=== PATIENT | female | born 2000 | race African-American/Black ===

== ENCOUNTER 2021-08-15 18:19 | Emergency (ER) | payer OTHER ==
[~2021-08-15] VITALS: Ht 167.6 cm; Wt 54.4 kg
[2021-08-15 20:21] LABS: URINE BILIRUBIN NEGATIVE (Negative); URINE BLOOD NEGATIVE (Negative); URINE CLARITY CLEAR; URINE COLOR YELLOW; URINE GLUCOSE-RANDOM NEGATIVE (Negative); URINE KETONES NEGATIVE (Negative); URINE LEUKOCYTES-REFLEX NEGATIVE (Negative); URINE NITRITE-REFLEX NEGATIVE (Negative); URINE PROTEIN NEGATIVE (Negative)
[2021-08-15] MEDS ORDERED: FLAGYL500 M1 PO (23:36)
[2021-08-15 23:54] VITALS: BP 112/58
== END 2021-08-15 23:54 | disposition home or self-care (01) ==
LOC: M.ERS 18:19
PROVIDERS: Nurse Practitioner Psychiatric/Mental Health
DX: N76.0 Acute vaginitis (principal)

== ENCOUNTER 2021-09-15 16:03 | Emergency (ER) | payer OTHER ==
[~2021-09-15] VITALS: Ht 170.2 cm; Wt 57.6 kg
[~2021-09-15 16:03] MED LIST: FLAGYL500 M1 PO
[2021-09-15 16:24] LABS: URINE BILIRUBIN NEGATIVE (Negative); URINE BLOOD 3+ (Negative); URINE CLARITY CLOUDY; URINE COLOR YELLOW; URINE GLUCOSE-RANDOM NEGATIVE (Negative); URINE KETONES NEGATIVE (Negative); URINE PROTEIN 2+ (Negative); URINE SPECIFIC GRAVITY 1.015 (1.005-1.030); URINE UROBILINOGEN 0.2 E.U./dl (0.2-1.0)
[2021-09-15 16:26] LABS: URINE LEUKOCYTES-REFLEX 3+ (Negative); URINE NITRITE-REFLEX POSITIVE (Negative)
[2021-09-15 16:30] LABS: MUCUS None Seen strn/LPF (None Seen); SQUAMOUS 4-10 Moderate /LPF (0-3)
[2021-09-15 16:31] LABS: BACTERIA-REFLEX 1-9 Few /HPF (None Seen); CASTS None Seen /LPF (None Seen); CRYSTALS None Seen /LPF (None Seen); URINE WBC-REFLEX >25 Many /HPF (0-5)
[2021-09-15] MEDS ORDERED: CIPRO500 M1 PO (16:37)
[2021-09-15] MEDS ORDERED: PHENAZOPYRIDIN200 M2 PO (16:37)
[2021-09-15 16:51] VITALS: BP 132/83
== END 2021-09-15 16:55 | disposition home or self-care (01) ==
LOC: M.ERS 16:03
PROVIDERS: Family Medicine
DX: N39.0 Urinary tract infection, site not specified (principal)

== ENCOUNTER 2021-11-19 16:05 | Emergency (ER) | payer OTHER ==
[~2021-11-19] VITALS: Ht 167.6 cm; Wt 58.5 kg
[~2021-11-19 16:05] MED LIST changes: +CIPRO500 M1 PO; +PHENAZOPYRIDIN200 M2 PO
[2021-11-19 17:22] LABS: URINE BILIRUBIN NEGATIVE (Negative); URINE BLOOD NEGATIVE (Negative); URINE CLARITY CLEAR; URINE COLOR YELLOW; URINE GLUCOSE-RANDOM NEGATIVE (Negative); URINE KETONES NEGATIVE (Negative); URINE LEUKOCYTES NEGATIVE (Negative); URINE NITRITE NEGATIVE (Negative); URINE PROTEIN NEGATIVE (Negative); URINE SPECIFIC GRAVITY 1.025 (1.005-1.030); URINE UROBILINOGEN 0.2 E.U./dl (0.2-1.0)
[2021-11-19] MEDS ORDERED: SUPRAX400 M1 PO (18:50)
[2021-11-19] MEDS ORDERED: DOXYCYCLINE 10100 MG PO (18:50)
[2021-11-19 19:01] VITALS: BP 114/64
== END 2021-11-19 19:02 | disposition home or self-care (01) ==
LOC: M.ERS 16:05
PROVIDERS: Physician Assistant
DX: N89.8 Other specified noninflammatory disorders of vagina (principal)